=== PATIENT | male | born 1965 | race Caucasian/White ===

== ENCOUNTER 2016-08-17 12:44 | Observation (INO) | payer OTHER ==
[~2016-08-17] VITALS: Ht 185.4 cm; Wt 67.0 kg
[2016-08-17] MEDS: TIOTROPIUM INHALER/CAPSULE (SPIRIVA) INH SCH (08:00)
[~2016-08-17 12:44] MED LIST: ACET-654 PO; ADVI200T PO; AMBIEN PO; ASCO25TA PO; ASPI81TA21 PO; COMBIN INH; FERR325T3 PO; IRON28TA PO; IRON325T3 PO; IRONTAB3 PO; MUSCLE RELAXER PO; NICO14DI3 TD; NICO14PA TD; PERC5TAB PO; PERC7.5T12 PO; SPIRIVA INH; TYLE325T5 PO; ULTR50TA PO; ZOLP-187 PO; spiriva INH
[2016-08-17 13:52] LABS: MEAN CORPUSCULAR HEMOGLOBIN 16.7 pg (27.0-33.0); MEAN CORPUSCULAR HGB CONC 25.4 g/dl (32.0-36.5); MEAN CORPUSCULAR VOLUME 65.7 fl (80.0-96.0); WHITE BLOOD COUNT 3.4 K/mm3 (4.0-10.0)
[2016-08-17 14:00] LABS: INR 0.97
[2016-08-17 14:24] LABS: ALBUMIN/GLOBULIN RATIO 0.73 (1.00-1.93); ALKALINE PHOSPHATASE 44 U/L (45-117); ALT/SGPT 25 U/L (12-78); ANION GAP 10 MEQ/L (8-16); AST/SGOT 34 U/L (15-37); BILIRUBIN,DIRECT < 0.1 MG/DL (0.0-0.2); BILIRUBIN,TOTAL 0.3 MG/DL (0.2-1.0); BLOOD UREA NITROGEN 5 MG/DL (7-18); CALCIUM LEVEL 8.4 MG/DL (8.5-10.1); CARBON DIOXIDE LEVEL 20 MEQ/L (21-32); CHLORIDE LEVEL 108 MEQ/L (98-107); CREATININE FOR GFR 0.82 MG/DL (0.70-1.30); GLOMERULAR FILTRATION RATE > 60.0 (>56); GLUCOSE, FASTING 106 MG/DL (70-105); POTASSIUM SERUM 3.9 MEQ/L (3.5-5.1); SODIUM LEVEL 138 MEQ/L (136-145); TOTAL PROTEIN 7.1 GM/DL (6.4-8.2)
[2016-08-17 14:26] LABS: ANISOCYTOSIS 2+; BASOPHILS 3 % (0-4); EOSINOPHILS 4 % (0-5); HYPOCHROMASIA 3+; MICROCYTOSIS 3+; OVALOCYTES 1+
[2016-08-17 14:27] LABS: TEAR DROP CELLS 1+
--- NOTE | 2016-08-17 15:00 | HPEPDOC ---
General Date of Admission 07-18 Chief Complaint The patient is a 51-year-old male admitted with a reason for visit of Abnormal Lab Results. 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 Pt states that it clotted within minutes. He states that he has had nose bleeds in the past due to his hereditary condition and that when it gets to the point of him becoming dizzy, he knows to come to the hospital. He has been transfused blood in the past due to being anemic with his nose bleeds. Pt also states that for the past one month he has been becoming full very quickly after meals, also describes a 20 lb weight loss in two weeks. Home Medications Scheduled Ferrous Sulfate (Ferrous Sulfate) 325 Mg Tab, 325 MG PO DAILY, (Reported) Nicotine (Nicotine 14MG Patch) 1 Patch Tdsy, 1 PATCH TD DAILY, (Reported) Tiotropium [place] Monohydrate (Spiriva Handihaler) 18 Mcg Cap, 1 INHALATION INH DAILY, (Reported) Scheduled PRN Albuterol/Ipratropium (Combivent Respimat 20-100 Mcg/Act) 1 Aer Aer, 1 PUFF INH BID PRN for SHORTNESS OF BREATH, (Reported) Tramadol HCl (Tramadol HCl) 50 Mg Tab, 50 MG PO TID PRN for PAIN, (Reported) Allergies Coded Allergies: No Known Drug Allergy (Verified Allergy, 05/09/12) Past Medical History Medical History Osler Mitchell Rendu -HHT hx CVA 2013 w/residual left hand intermittent numbness COPD lung ca s/p lung resection mets to brain s/p gamma knife procedure in [place], [place] Family History Significant Family History: No pertinent family hx Social History * Smoker: Denies, current smoker (1/2 ppd since 16 years old) Alcohol: Denies Drugs: denies Review of Symptoms Constitutional: Reports: Fatigue, Denies: Chills, Fever Eyes: Denies: Vision change, Conjunctivae inflammation ENT: Denies: Head Aches, Ear Pain, Dysphagia Skin: Denies: Rash, Lesions Pulmonary: Denies: Dyspnea, Cough, Pleuritic Chest Pain Cardiovascular: Denies: Chest Pain, Palpitations, Orthopnea, Paroxysmal Noc. Dyspnea Gastrointestinal: Denies: Nausea, Vomiting, Abdominal Pain, Diarrhea, Constipation Hematologic: Reports: Bleeding Excessively, Denies: Petecchia, Purpura Neurological: Reports: Other Symptoms (dizzy), Denies: Weakness Psych: Reports: Mood Normal Physical Examination General Exam: Positive: Alert, Cooperative, No Acute Distress Eye Exam: Positive: Conjunctiva & lids normal, EOMI, Negative: Sclera icteric ENT Exam: Positive: Atraumatic, Mucous membr. moist/pink, Pharynx Normal, Tongue Midline Neck Exam: Positive: Supple Chest Exam: Positive: Clear to auscultation, Normal air movement, Negative: Rales, Rhonchi, Wheezing Heart Exam: Positive: Rate Normal, Normal S1, Normal S2, Negative: Gallops, Murmurs, Rubs Telemetry: Positive: No significant arrhythmia Abdomen Exam: Positive: Normal bowel sounds, Soft, Negative: Tenderness, Hepatospenomegaly Extremity Exam: Negative: Clubbing, Cyanosis, Edema Skin Exam: Positive: Nl turgor and temperature Other physical findings no lymphadenopathy appreciated. no abdominal pulsatile mass or bruit appreciated Vital Signs Vital Signs Date Time Temp Pulse Resp B/P (MAP) Pulse Ox O2 Delivery O2 Flow Rate FiO2 08/17/16 13:45 08/17/16 12:46 97.4 100 18 97 Room Air Laboratory Data Labs 24H Laboratory Tests 2 08/17/16 13:36: Neutrophils 64, Lymphocytes (Manual) 26, Monocytes (Manual) 3, Eosinophils ( Manual) 4, Basophils (Manual) 3, Platelet Estimate NORMAL, Hypochromasia 3+, Anisocytosis 2+, Microcytosis 3+, Tear Drop Cells 1+, Ovalocytes 1+, Prothrombin Time 13.0, Prothromb Time International Ratio 0.97, Activated Partial Thromboplast Time 28.6, Anion Gap 10, Glomerular Filtration Rate > 60.0 , Calcium Level 8.4L, Aspartate Amino Transf (AST/SGOT) 34, Alanine Aminotransferase (ALT/SGPT) 25, Alkaline Phosphatase 44L, Total Bilirubin 0.3, Direct Bilirubin < 0.1, Total Protein 7.1, Albumin 3.0L, Albumin/Globulin Ratio 0.73L CBC/BMP Laboratory Tests 08/17/16 13:36 Problems (1) Anemia Status: Acute Response to Treatment: Stable Problem Text: H/H 5.120 Pt will be transfused two units PRBC, consent obtained will check iron studies continue home iron will recheck H/H post transfusion (2) Hypotension Status: Acute Response to Treatment: Stable Problem Text: 104/59 will continue IV fluids hold any HTN medications (3) COPD (chronic obstructive pulmonary disease) Status: Chronic Response to Treatment: Stable Problem Text: continue home medications duonebs (4) HHT (hereditary hemorrhagic telangiectasia) Status: Chronic Response to Treatment: Stable Problem Text: bruit heard in RLL, will obtain abdominal u/s to evaluate for abdominal aneurysm, could not appreciate bruit or pulsatile mass on abdominal physical exam (5) Early satiety (6) Weight loss Status: Acute Response to Treatment: Stable Problem Text: describes 20 lb weight loss in 2 weeks due to history of lung cancer, will obtain Chest CT also due to early satiety will obtain barium swallow to evaluate for gastric etiology, pt did not have lymphadenopathy on PE (7) DVT prophylaxis Status: Acute Response to Treatment: Stable Problem Text: scd teds Plan / VTE VTE Prophylaxis Ordered?: Yes GME ATTESTATION GME ATTESTATION My preceptor for this patient encounter was physically present in the building during the encounter and was fully available. As needed, all aspects of the patient interview, examination, medical decision making process, and medical care plan development were reviewed and approved by the preceptor. Preceptor is aware and concurs with the plan as stated in the body of this note and will attest to such by his/her cosignature. MARK PAZ DO Aug 17, 2016 15:00 ALISIA DUENAS MD Aug 17, 2016 20:15
[2016-08-17] MEDS ORDERED: SPIR1CAP INH (15:03)
[2016-08-17] MEDS ORDERED: COMBAER6 INH (15:03)
[2016-08-17] MEDS ORDERED: FERR1TAB8 PO (15:03)
[2016-08-17] MEDS ORDERED: TRAM50TA2 PO (15:03)
[2016-08-17] MEDS ORDERED: NICO14DI20 TD (15:03)
[2016-08-17] MEDS ORDERED: traMADol 50 MG TAB PO PRN (15:45)
--- NOTE | 2016-08-17 15:57 | REP ---
CHEST, TWO VIEWS: Two views of the chest were performed and compared to prior study of 04/27/2013. There is no acute infiltrate. There is elevation of left hemidiaphragm with chronic blunting of left costophrenic angle. The heart is normal in size. Mediastinal silhouette is unchanged. Visualized osseous structures appear unremarkable. IMPRESSION: No acute infiltrate. Signed by Scar Enrique MD 08/17/2016 05:10 P
[2016-08-17] MEDS ORDERED: IPRATROPIUM 0.5MG/ALBUTEROL 2.5MG INH SOL UD 3ML (DUONEB)(J7620) NEB PRN (16:00)
[2016-08-17] MEDS ORDERED: NS 1,000 ML IV SCH (16:00)
[2016-08-17] MEDS ORDERED: ISOVUE-370 76% 100ML VIAL (Q9967) As Ordered ONE (16:30)
--- NOTE | 2016-08-17 17:31 | REP ---
ULTRASOUND ABDOMINAL AORTA: Real-time sonographic evaluation of the abdominal aorta performed. Real-time sonographic evaluation of the abdominal aorta is performed. The abdominal aorta is normal in caliber. Proximally at the level of the diaphragms, AP diameter is 2.2 cm, at the level of the renal arteries 2.1 cm, mid aspect 2.0 cm and just above the bifurcation 1.8 cm. Common iliac arteries are normal in caliber, right measuring 1.1 cm and left 0.9 cm. IMPRESSION: No sonographic evidence of abdominal aortic aneurysm. Signed by Scar Enrique MD 08/18/2016 04:22 P
[2016-08-17 18:20] VITALS: BP 115/69
[2016-08-17 19:28] LABS: FERRITIN 3 NG/ML (26-388); TOTAL IRON BINDING CAPACITY 362 UG/DL (250-450)
[2016-08-17 19:35] LABS: VITAMIN B12 LEVEL 319 PG/ML
[2016-08-17 19:36] LABS: FOLATE 9.6 NG/ML
--- NOTE | 2016-08-17 19:40 | REPUSA ---
CT angiogram of the chest Clinical statement: lung cancer, shortness of breath. Technique: Multiple axial CT images were obtained from the thoracic inlet through the upper abdomen a fter a bolus administration of nonionic intravenous contrast. Coronal and sagittal reconstructions we re also obtained. Comparison: 11/22/2012. Findings: The pulmonary arteries are well-opacified with contrast, with no intraluminal filling defec ts to suggest embolism. There is a vascular anomaly in the right lower lobe, with several dilated art erial structures noted. The thoracic aorta is unremarkable. Thyroid gland is within normal limits. Th ere is no thoracic lymphadenopathy. There are no pericardial or pleural effusions. Moderate bilateral emphysema is stable. There are no acute infiltrates or nodules. Limited imaging of the upper abdomen is unremarkable. There are no suspicious osseous lesions. Impression: 1. No evidence of pulmonary embolism. 2. No acute infiltrates or effusions. 3. 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 4. Stable moderate emphysema.
[2016-08-17 20:00] VITALS: BP 138/68
[2016-08-17] MEDS: NICOTINE 14 MG/24 HR TRANSDERMAL TD SCH (20:12)
[2016-08-17] MEDS: FERROUS SULFATE 325MG TAB PO SCH (20:12)
[2016-08-17 23:59] VITALS: BP 119/71
[2016-08-18] MEDS: ONDANSETRON 4MG/2ML VIAL (J2405) IV SCH ×6 (00:45→20:42)
[2016-08-18 04:00] VITALS: BP 112/66
[2016-08-18] MEDS ORDERED: ALBUTEROL SULFATE 2.5 MG/0.5 ML INH NEB SOLN NEB PRN (06:30)
[2016-08-18] MEDS: TIOTROPIUM INHALER/CAPSULE (SPIRIVA) INH SCH (07:13)
[2016-08-18] MEDS: IPRATROPIUM 0.5MG/ALBUTEROL 2.5MG INH SOL UD 3ML (DUONEB)(J7620) NEB SCH ×2 (07:13→20:54)
[2016-08-18 08:00] VITALS: BP 123/74
[2016-08-18 08:25] LABS: ADD MORPHOLOGY? YES; BASO % 0.8 % (0.0-1.0); EOS # 0.1 K/mm3 (0.0-0.50); EOS % 2.2 % (0.0-3.0); LARGE UNSTAINED CELL # 0.1 K/mm3 (0.0-0.4); LARGE UNSTAINED CELL % 1.8 % (0.0-4.0); LYMPH % 24.2 % (24.0-44.0); MEAN CORPUSCULAR HEMOGLOBIN 21.8 pg (27.0-33.0); MEAN CORPUSCULAR HGB CONC 29.5 g/dl (32.0-36.5); MEAN CORPUSCULAR VOLUME 74.2 fl (80.0-96.0); MONO # 0.3 K/mm3 (0.0-0.8); MONO % 6.6 % (0.0-5.0); NEUTROPHILS # 2.5 K/mm3 (1.8-7.7); NEUTROPHILS % 64.4 % (36.0-66.0); PLATELET COUNT, AUTOMATED 177 k/mm3 (150-450); RED CELL DISTRIBUTION WIDTH 22.8 % (11.5-14.5); WHITE BLOOD COUNT 3.9 K/mm3 (4.0-10.0)
[2016-08-18 08:55] LABS: HYPOCHROMASIA 2+; MICROCYTOSIS 2+
[2016-08-18] MEDS: FERROUS SULFATE 325MG TAB PO SCH (08:57)
[2016-08-18] MEDS: NICOTINE 14 MG/24 HR TRANSDERMAL TD SCH (08:57)
[2016-08-18 09:44] LABS: ANION GAP 8 MEQ/L (8-16); BLOOD UREA NITROGEN 6 MG/DL (7-18); CALCIUM LEVEL 7.9 MG/DL (8.5-10.1); CARBON DIOXIDE LEVEL 21 MEQ/L (21-32); CHLORIDE LEVEL 108 MEQ/L (98-107); CREATININE FOR GFR 0.69 MG/DL (0.70-1.30); GLOMERULAR FILTRATION RATE > 60.0 (>56); GLUCOSE, FASTING 81 MG/DL (70-105); POTASSIUM SERUM 3.9 MEQ/L (3.5-5.1); SODIUM LEVEL 137 MEQ/L (136-145)
--- NOTE | 2016-08-18 10:00 | IPNPDOC ---
Subjective Date Seen The patient was seen on 08/18/16. Subjective Chief Complaint/HPI The patient is a 51-year-old male admitted with a reason for visit of Anemia, Osler Hemorrhagic Telangiectasia Syndrome. General: Denies: Chills Constitutional: Denies: Malaise Eyes: Denies: Vision change, Conjunctivae inflammation, Eyelid inflammation Skin: Denies: Rash, Lesions, Jaundice Pulmonary: Denies: Dyspnea, Cough Cardiovascular: Denies: Chest Pain, Palpitations, Orthopnea Gastrointestinal: Denies: Nausea, Vomiting, Abdominal Pain Musculoskeletal: Denies: Neck Pain Neurological: Denies: Weakness Objective Physical Examination General Exam: Positive: Alert, Cooperative, No Acute Distress Eye Exam: Positive: Conjunctiva & lids normal, EOMI, Negative: Sclera icteric ENT Exam: Positive: Atraumatic, Mucous membr. moist/pink, Pharynx Normal, Tongue Midline Neck Exam: Positive: Supple Chest Exam: Positive: Clear to auscultation, Normal air movement, Negative: Rales, Rhonchi, Wheezing Heart Exam: Positive: Rate Normal, Normal S1, Normal S2, Negative: Gallops, Murmurs, Rubs Telemetry: Positive: No significant arrhythmia Abdomen Exam: Positive: Normal bowel sounds, Soft, Negative: Tenderness, Hepatospenomegaly Extremity Exam: Negative: Clubbing, Cyanosis, Edema Skin Exam: Positive: Nl turgor and temperature Assessment /Plan Problems (1) Anemia Status: Acute Response to Treatment: Stable Problem Text: H/H 8.5/28.9 this morning s/p 2 pRBC transfusions iron studies show iron 11, TIBC 362, transferrin 3.0 and ferritin 3, suspect iron def. anemia continue home iron will continue to monitor h/h (2) Hypotension Status: Acute Response to Treatment: Stable Problem Text: stable, improved, 123/74 have d/c IV fluids continue to monitor (3) COPD (chronic obstructive pulmonary disease) Status: Chronic Response to Treatment: Stable Problem Text: continue home medications duonebs (4) HHT (hereditary hemorrhagic telangiectasia) Status: Chronic Response to Treatment: Stable Problem Text: bruit heard in RLL negative abdominal aortic u/s for aneurysm Chest CT shows AVM unchanged from prior study continue to monitor pt is not SOB, saturation 96% on room air (5) Early satiety Status: Acute Response to Treatment: Stable Problem Text: described 20 lb weight loss in 2 weeks, will obtain barium swallow to evaluate for mass/lesions, denies feeling of food getting stuck in throat or chest (6) Weight loss Status: Acute Response to Treatment: Stable Problem Text: describes 20 lb weight loss in 2 weeks due to history of lung cancer, chest CT was obtained, negative for acute disease also due to early satiety will obtain barium swallow to evaluate for gastric etiology, pt did not have lymphadenopathy on PE (7) DVT prophylaxis Status: Acute Response to Treatment: Stable Problem Text: scd teds Plan/VTE VTE Prophylaxis Ordered?: Yes VS, I&O, 24H, Fishbone Vital Signs/I&O Vital Signs Date Time Temp Pulse Resp B/P (MAP) Pulse Ox O2 Delivery O2 Flow Rate FiO2 08/18/16 08:00 99.5 69 20 123/74 (90) 96 Room Air I&O- Last 24 Hours up to 6 AM 08/18/16 05:59 Intake Total 1320 ml Output Total 1850 ml Balance -530 ml Laboratory Data 24H LABS Laboratory Tests 2 08/17/16 13:36: Neutrophils 64, Lymphocytes (Manual) 26, Monocytes (Manual) 3, Eosinophils ( Manual) 4, Basophils (Manual) 3, Platelet Estimate NORMAL, Hypochromasia 3+, Anisocytosis 2+, Microcytosis 3+, Tear Drop Cells 1+, Ovalocytes 1+, Prothrombin Time 13.0, Prothromb Time International Ratio 0.97, Activated Partial Thromboplast Time 28.6, Anion Gap 10, Glomerular Filtration Rate > 60.0 , Calcium Level 8.4L, Iron Level 11L, Total Iron Binding Capacity 362, Transferrin % Saturation 3.0L, Ferritin 3L, Aspartate Amino Transf (AST/SGOT) 34 , Alanine Aminotransferase (ALT/SGPT) 25, Alkaline Phosphatase 44L, Total Bilirubin 0.3, Direct Bilirubin < 0.1, Total Creatine Kinase 47, Creatine Kinase MB 1.1, Creatine Kinase MB Relative Index 2.34, Troponin I < 0.02, Total Protein 7.1, Albumin 3.0L, Albumin/Globulin Ratio 0.73L, Vitamin B12 Level 319, Folate 9.6 08/18/16 07:49: Platelet Estimate NORMAL, Hypochromasia 2+, Microcytosis 2+, Anion Gap 8, Glomerular Filtration Rate > 60.0, Calcium Level 7.9L, White Blood Count 3.9L, Red Blood Count 3.90L, Hemoglobin 8.5L, Hematocrit 28.9L, Mean Corpuscular Volume 74.2#L, Mean Corpuscular Hemoglobin 21.8L, Mean Corpuscular Hemoglobin Concent 29.5L, Red Cell Distribution Width 22.8H, Platelet Count 177, Neutrophils (%) (Auto) 64.4, Lymphocytes (%) (Auto) 24.2, Monocytes (%) (Auto) 6.6H, Eosinophils (%) (Auto) 2.2, Basophils (%) (Auto) 0.8, Neutrophils # (Auto ) 2.5, Lymphocytes # (Auto) 1.0L, Monocytes # (Auto) 0.3, Eosinophils # (Auto) 0.1, Basophils # (Auto) 0.0, Large Unclassified Cells % 1.8, Large Unclassified Cells # 0.1, Macrocytosis , Blood Urea Nitrogen 6L, Creatinine 0.69L, Sodium Level 137, Potassium Level 3.9, Chloride Level 108H, Carbon Dioxide Level 21 CBC/BMP Laboratory Tests 08/17/16 13:36 08/18/16 00:11 08/18/16 07:49 Red Blood Count 3.90 L, Mean Corpuscular Volume 74.2 #L, Mean Corpuscular Hemoglobin 21.8 L, Mean Corpuscular Hemoglobin Concent 29.5 L, Red Cell Distribution Width 22.8 H, Neutrophils (%) (Auto) 64.4, Lymphocytes (%) (Auto) 24.2, Monocytes (%) (Auto) 6.6 H, Eosinophils (%) (Auto) 2.2, Basophils (%) ( Auto) 0.8, Neutrophils # (Auto) 2.5, Lymphocytes # (Auto) 1.0 L, Monocytes # ( Auto) 0.3, Eosinophils # (Auto) 0.1, Basophils # (Auto) 0.0, Calcium Level 7.9 L Microbiology Microbiology 08/17/16 Stool Occult Blood (FANTA) - Final, Complete GME ATTESTATION GME ATTESTATION My preceptor for this patient encounter was physically present in the building during the encounter and was fully available. As needed, all aspects of the patient interview, examination, medical decision making process, and medical care plan development were reviewed and approved by the preceptor. Preceptor is aware and concurs with the plan as stated in the body of this note and will attest to such by his/her cosignature. MARK PAZ DO Aug 18, 2016 10:00
[2016-08-18 12:00] VITALS: BP 106/66
[2016-08-18 16:30] VITALS: BP 115/73
--- NOTE | 2016-08-18 18:21 | ECGEPIP ---
Stationary ECG Study [facility] - ED Test Date: 2016-08-17 Pat Name: MIRIAN FELICIANO Department: Room: - Gender: M Customer Relations Representative: suzanne : 1965 Requested By: MICHAEL RAMEY Order Number: [id number] Reading MD: Madeline Beavers Measurements Intervals [place] Rate: 78 P: 72 LA: 167 QRS: 71 QRSD: 93 T: 32 QT: 373 QTc: 427 Interpretive Statements SINUS RHYTHM DELAYED R PROGRESSION LOW VOLTAGE LIMB NSTTW ABNORMALITY Electronically Signed On 08-18-2016 18:20:48 EDT by Madeline Beavers
[2016-08-18 20:00] VITALS: BP 103/63
[2016-08-18 23:59] VITALS: BP 113/69
[2016-08-19] MEDS: ONDANSETRON 4MG/2ML VIAL (J2405) IV SCH ×4 (01:02→13:09)
[2016-08-19 04:00] VITALS: BP 118/80
[2016-08-19 05:52] LABS: ADD MORPHOLOGY? YES; BASO # 0.1 K/mm3 (0.0-0.2); BASO % 1.2 % (0.0-1.0); EOS # 0.2 K/mm3 (0.0-0.50); EOS % 3.2 % (0.0-3.0); LARGE UNSTAINED CELL # 0.1 K/mm3 (0.0-0.4); LARGE UNSTAINED CELL % 1.6 % (0.0-4.0); LYMPH # 1.4 K/mm3 (1.5-4.5); LYMPH % 26.1 % (24.0-44.0); MEAN CORPUSCULAR HEMOGLOBIN 22.1 pg (27.0-33.0); MEAN CORPUSCULAR HGB CONC 29.9 g/dl (32.0-36.5); MEAN CORPUSCULAR VOLUME 73.9 fl (80.0-96.0); MONO # 0.3 K/mm3 (0.0-0.8); MONO % 6.2 % (0.0-5.0); NEUTROPHILS # 3.2 K/mm3 (1.8-7.7); NEUTROPHILS % 61.8 % (36.0-66.0); PLATELET COUNT, AUTOMATED 178 k/mm3 (150-450); RED CELL DISTRIBUTION WIDTH 23.6 % (11.5-14.5); WHITE BLOOD COUNT 5.1 K/mm3 (4.0-10.0)
[2016-08-19 06:09] LABS: ANION GAP 6 MEQ/L (8-16); BLOOD UREA NITROGEN 6 MG/DL (7-18); CARBON DIOXIDE LEVEL 22 MEQ/L (21-32); CHLORIDE LEVEL 108 MEQ/L (98-107); CREATININE FOR GFR 0.71 MG/DL (0.70-1.30); GLOMERULAR FILTRATION RATE > 60.0 (>56); GLUCOSE, FASTING 86 MG/DL (70-105); POTASSIUM SERUM 3.8 MEQ/L (3.5-5.1); SODIUM LEVEL 136 MEQ/L (136-145)
[2016-08-19 06:47] LABS: HYPOCHROMASIA 2+; MICROCYTOSIS 2+
[2016-08-19 06:49] LABS: ANISOCYTOSIS 2+
[2016-08-19] MEDS: IPRATROPIUM 0.5MG/ALBUTEROL 2.5MG INH SOL UD 3ML (DUONEB)(J7620) NEB SCH (07:00)
[2016-08-19] MEDS: TIOTROPIUM INHALER/CAPSULE (SPIRIVA) INH SCH (07:00)
[2016-08-19 07:45] VITALS: BP 112/71
--- NOTE | 2016-08-19 08:38 | DS.PDOC ---
Discharge Summary General Date of Admission Aug 17, 2016 at 16:12 Date of Discharge 08-19-16 Discharge Summary PROCEDURES PERFORMED DURING STAY: None ADMITTING DIAGNOSES: 1. Acute blood loss anemia 2. Hypotension 3. COPD 4. Early satiety and weight loss DISCHARGE DIAGNOSES: 1. Acute blood loss anemia 2/2 epistaxis due to Hereditary hemorrhagic telangiectasia 2. COPD 3. Hypotension 4. 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 Early satiety/wt. loss will need to be worked up for malignancy 6. Osler Mitchell Rendu Syndrome 7. 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 History of lung cancer with Metastasis to Brain treated in 2012 with Lung resection and gamma knife irradiation of the brain 9. History of CVA 10. GERD COMPLICATIONS/CHIEF COMPLAINT: Anemia, Osler Hemorrhagic Telangiectasia Syndrome. 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 HOSPITAL COURSE: During the course of the hospital stay the pt received a total of four pRBC transfusions. On day of d/c his H/H was 8.8/29.4 respectively. He appeared well and stated he was ready to go home, did not have any further nose bleeds during this hospital stay. DISCHARGE MEDICATIONS: Please see below. ALLERGIES: Please see below. PHYSICAL EXAMINATION ON DISCHARGE: VITAL SIGNS: Please see below. GENERAL: Well appearing, pleasant, conversant. HEENT: EOMI, PERRLA, nares patent b/l, neck supple, trachea midline CARDIOVASCULAR EXAMINATION: NSR, no murmurs, rubs or gallops appreciated. RESPIRATORY EXAMINATION: RLL bruit from stable AVM, otherwise CTA b/l although diminished throughout, no wheezing, rhonchi or rales appreciated ABDOMINAL EXAMINATION: soft, non-distended, nabsx4, no rebound ridgity or guarding, non-tender EXTREMITIES: no edema, swelling or cyanosis appreciated SKIN: intact NEUROLOGICAL EXAMINATION: no focal deficits appreciated PSYCHIATRIC EXAMINATION: normal affect and mood LABORATORY DATA: Please see below. IMAGING: CXR 08-17-16 IMPRESSION: No acute infiltrate. Aortic u/s 08-17-16 IMPRESSION: No sonographic evidence of abdominal aortic aneurysm. Barium swallow 08-19-16 There is gastroesophageal reflux demonstrated to the level of the braxton. There are thickened folds within the stomach and duodenum. This may represent gastritis and duodenitis however this may also be related to the reported history of vascular telangiectasia.The patient has a history of duplication of the IVC. There are two IVC filters in place. PROGNOSIS: favorable ACTIVITY: As tolerated DIET: Regular, as tolerated DISCHARGE PLAN: home DISPOSITION: stable DISCHARGE INSTRUCTIONS: 1. Follow with PCP within one week of d/c ITEMS TO FOLLOWUP ON ON OUTPATIENT: 1. Follow with PCP within one week of d/c DISCHARGE CONDITION: Stable TIME SPENT ON DISCHARGE: Greater than 25 minutes. Vital Signs/I&Os Vital Signs Date Time Temp Pulse Resp B/P (MAP) Pulse Ox O2 Delivery O2 Flow Rate FiO2 08/19/16 07:45 99.5 74 22 112/71 (85) 96 Room Air I&O- Last 24 Hours up to 6 AM 08/19/16 05:59 Intake Total 1965 ml Output Total 1225 ml Balance 740 ml Laboratory Data Labs 24H Laboratory Tests 2 08/19/16 05:40: White Blood Count 5.1, Red Blood Count 3.97L, Hemoglobin 8.8L, Hematocrit 29.4L , Mean Corpuscular Volume 73.9L, Mean Corpuscular Hemoglobin 22.1L, Mean Corpuscular Hemoglobin Concent 29.9L, Red Cell Distribution Width 23.6H, Platelet Count 178, Neutrophils (%) (Auto) 61.8, Lymphocytes (%) (Auto) 26.1, Monocytes (%) (Auto) 6.2H, Eosinophils (%) (Auto) 3.2H, Basophils (%) (Auto) 1.2H, Neutrophils # (Auto) 3.2, Lymphocytes # (Auto) 1.4L, Monocytes # (Auto) 0.3, Eosinophils # (Auto) 0.2, Basophils # (Auto) 0.1, Large Unclassified Cells % 1.6, Large Unclassified Cells # 0.1, Platelet Estimate NORMAL, Hypochromasia 2 +, Anisocytosis 2+, Microcytosis 2+, Anion Gap 6L, Glomerular Filtration Rate > 60.0, Blood Urea Nitrogen 6L, Creatinine 0.71, Sodium Level 136, Potassium Level 3.8, Chloride Level 108H, Carbon Dioxide Level 22, Calcium Level 8.0L CBC/BMP Laboratory Tests 08/19/16 05:40 Red Blood Count 3.97 L, Mean Corpuscular Volume 73.9 L, Mean Corpuscular Hemoglobin 22.1 L, Mean Corpuscular Hemoglobin Concent 29.9 L, Red Cell Distribution Width 23.6 H, Neutrophils (%) (Auto) 61.8, Lymphocytes (%) (Auto) 26.1, Monocytes (%) (Auto) 6.2 H, Eosinophils (%) (Auto) 3.2 H, Basophils (%) ( Auto) 1.2 H, Neutrophils # (Auto) 3.2, Lymphocytes # (Auto) 1.4 L, Monocytes # ( Auto) 0.3, Eosinophils # (Auto) 0.2, Basophils # (Auto) 0.1, Calcium Level 8.0 L Microbiology Microbiology 08/17/16 Stool Occult Blood (FANTA) - Final, Complete Discharge Medications Scheduled Ferrous Sulfate (Ferrous Sulfate) 325 Mg Tab, 325 MG PO DAILY, (Reported) Nicotine (Nicotine 14MG Patch) 1 Patch Tdsy, 1 PATCH TD DAILY, (Reported) Tiotropium [place] Monohydrate (Spiriva Handihaler) 18 Mcg Cap, 1 INHALATION INH DAILY, (Reported) Scheduled PRN Albuterol/Ipratropium (Combivent Respimat 20-100 Mcg/Act) 1 Aer Aer, 1 PUFF INH BID PRN for SHORTNESS OF BREATH, (Reported) Tramadol HCl (Tramadol HCl) 50 Mg Tab, 50 MG PO TID PRN for PAIN, (Reported) Allergies Coded Allergies: No Known Drug Allergy (Verified Allergy, 05/09/12) GME ATTESTATION GME ATTESTATION My preceptor for this patient encounter was physically present in the building during the encounter and was fully available. As needed, all aspects of the patient interview, examination, medical decision making process, and medical care plan development were reviewed and approved by the preceptor. Preceptor is aware and concurs with the plan as stated in the body of this note and will attest to such by his/her cosignature. MARK PAZ DO Aug 19, 2016 08:38 JAQUELINE LEE MD Sep 08, 2016 19:44
[2016-08-19] MEDS: NICOTINE 14 MG/24 HR TRANSDERMAL TD SCH (09:00)
[2016-08-19] MEDS: FERROUS SULFATE 325MG TAB PO SCH (09:00)
[2016-08-19] MEDS ORDERED: E-Z-GAS II EFFERVESCENT PACKET (SODIUM BICARB./CITRIC ACID/SIMETHICONE) As Ordered ONE (10:06)
[2016-08-19] MEDS ORDERED: E-Z-HD 98% w/w 340GM SUSP BTL As Ordered ONE (10:06)
[2016-08-19] MEDS ORDERED: E-Z-PAQUE 96% w/w SUSP 176GM BTL As Ordered ONE (10:06)
--- NOTE | 2016-08-19 17:25 | REP ---
UPPER GI AIR CONTRAST AND SMALL BOWEL FOLLOW-THROUGH: The procedure was performed under the direct supervision of Dr. Enrique. The images were reviewed with Dr. Enrique. The dater assembler film shows no organomegaly or pathological masses. The intestinal gas pattern is nonspecific. The patient has a history of duplication of the IVC. There are two IVC filters in place. Liquid barium and gas producing granules were given in the erect position as well as liquid barium in the prone oblique position in order to perform a double contrast upper GI examination. Additionally liquid barium was given at the end of the examination in order to perform a small bowel follow-through. The oral and pharyngeal stages of deglutition are unremarkable. Esophageal transport is prompt and efficient and there is no esophagitis, stricture, mucosal ring, or hiatal hernia. There is gastroesophageal reflux demonstrated to the level of the braxton. Within the stomach there are thickened folds. There is no alonzo ulcer identified. This may represent gastritis however this may also be related to vascular telangiectasia. Within the duodenum there are thickened folds. Again this may represent duodenitis and/or vascular telangiectasia . There is no alonzo ulcer identified. The barium column was followed through the small bowel to the level of the terminal ileum. Small bowel transit time was approximately 110 minutes. During fluoroscopy gentle palpation shows all loops are freely movable and pliable. There are no fixed or angulated loops. The small bowel mucosal pattern is normal in course and caliber. There is no transition to suggest a partial small bowel obstruction. Spot filming of terminal ileum shows it to be unremarkable. IMPRESSION: There are thickened folds within the stomach and duodenum. This may represent gastritis and duodenitis however this may also be related to the reported history of vascular telangiectasia. 3 minutes and 42 seconds of fluoroscopy time was utilized for this procedure. Reviewed by BENJY Cardenas 08/20/2016 03:20 PEdited and Signed by Scar Enrique MD 08/20/2016 03:54 P
== END 2016-08-19 14:58 | disposition home or self-care (01) ==
LOC: M ED 12:44 → M ED INP 16:12 → M PCU 18:21
PROVIDERS: ADMIT Internal Medicine; ATTEND Internal Medicine Nephrology
DX: D62 Acute posthemorrhagic anemia (principal); R04.0 Epistaxis; I95.9 Hypotension, unspecified; J44.9 Chronic obstructive pulmonary disease, unspecified; R68.81 Early satiety; R63.4 Abnormal weight loss; I78.0 Hereditary hemorrhagic telangiectasia; Z85.3 Personal history of malignant neoplasm of breast; Z86.73 Personal history of transient ischemic attack (TIA), and cerebral infarction without residual deficits; Z85.841 Personal history of malignant neoplasm of brain; F17.210 Nicotine dependence, cigarettes, uncomplicated; Z79.899 Other long term (current) drug therapy
CPT/HCPCS: 36415; 36430; 71020; 71260; 74245; 76775; 80048; 80076; 82270; 82550; 82553; 82607; 82728; 82746; 83550; 85007; 85014; 85018; 85025; 85027; 85610; 85730; 86850; 86900; 86901; 86920; 93000; 94640; 96374; 96376; 99285; P9016

== ENCOUNTER 2016-09-23 11:36 | Observation (INO) | payer OTHER ==
[~2016-09-23] VITALS: Ht 185.4 cm; Wt 72.0 kg
[~2016-09-23 11:36] MED LIST changes: +COMBAER6 INH; +FERR1TAB8 PO; +NICO14DI20 TD; +SPIR1CAP INH; +TRAM50TA2 PO
[2016-09-23 13:53] LABS: ADD MANUAL DIFFER YES; MEAN CORPUSCULAR HEMOGLOBIN 20.7 pg (27.0-33.0); MEAN CORPUSCULAR HGB CONC 27.8 g/dl (32.0-36.5); MEAN CORPUSCULAR VOLUME 74.5 fl (80.0-96.0); PLATELET COUNT, AUTOMATED 236 k/mm3 (150-450); RED CELL DISTRIBUTION WIDTH 21.9 % (11.5-14.5); WHITE BLOOD COUNT 2.1 K/mm3 (4.0-10.0)
[2016-09-23 13:54] LABS: DIFF SLIDE NUMBER 240
[2016-09-23 13:58] LABS: INR 0.96
[2016-09-23 14:16] LABS: ALBUMIN 2.8 GM/DL (3.2-5.2); ALBUMIN/GLOBULIN RATIO 0.78 (1.00-1.93); ALKALINE PHOSPHATASE 41 U/L (45-117); ALT/SGPT 30 U/L (12-78); ANION GAP 12 MEQ/L (8-16); AST/SGOT 45 U/L (15-37); BILIRUBIN,DIRECT 0.1 MG/DL (0.0-0.2); BILIRUBIN,TOTAL 0.2 MG/DL (0.2-1.0); BLOOD UREA NITROGEN 4 MG/DL (7-18); CALCIUM LEVEL 7.9 MG/DL (8.5-10.1); CARBON DIOXIDE LEVEL 21 MEQ/L (21-32); CHLORIDE LEVEL 107 MEQ/L (98-107); CREATININE FOR GFR 0.73 MG/DL (0.70-1.30); GLOMERULAR FILTRATION RATE > 60.0 (>56); GLUCOSE, FASTING 106 MG/DL (70-105); POTASSIUM SERUM 3.6 MEQ/L (3.5-5.1); SODIUM LEVEL 140 MEQ/L (136-145); TOTAL PROTEIN 6.4 GM/DL (6.4-8.2)
[2016-09-23 14:23] LABS: BASOPHILS 2 % (0-4); EOSINOPHILS 4 % (0-5)
[2016-09-23 14:24] LABS: HYPOCHROMASIA 2+; MICROCYTOSIS 2+
[2016-09-23] MEDS ORDERED: INCR1INH INH (14:26)
[2016-09-23] MEDS ORDERED: NS 1,000 ML IV ONE (14:30)
--- NOTE | 2016-09-23 14:37 | REP ---
CHEST, TWO VIEWS: COMPARISON: 08/17/2016 Two views of the chest are performed and again demonstrate bibasilar fibrotic change with chronic blunting of the left costophrenic angle and pleural thickening at that location. There is no acute infiltrate. The heart is normal in size. The mediastinal silhouette is unchanged. The visualized osseous structures appear intact. IMPRESSION: Stable chronic findings without evidence of acute pulmonary disease. Signed by Scar Enrique MD 09/23/2016 05:13 P
--- NOTE | 2016-09-23 14:41 | HPEPDOC ---
Medical History and Physical Date of Admission 09/23/16 History and Physical ATTENDING: Dr. Reynolds PCP: Nina Sharma NP CC: Sent by PCP related to labs for blood transfusion. 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 He has been transfused blood in the past due to being anemic with his nose bleeds. Pt states he had labs as per PCP and was sent to ED today after results were reviewed. Hgb 6.6. Pt has severe epistaxis related to HHT. Pt states he has felt weak and tired recently. Denies any fevers, chills, weakness, fatigue, ARNDT, CP, SOB, cough, palpitations, abdominal pain, N/V/D or changes in bowel or bladder habits. Upon presentation to the hospital the patient was found to have anemia, thus the hospitalist team was consulted. PMHx/PSHx: Osler Mitchell Rendu -HHT hx CVA 2013 w/residual left hand intermittent numbness COPD lung ca s/p lung resection mets to brain s/p gamma knife procedure in [place], [place] H/O DVT/mark filter SOCHX: Resides in: [facility] Marital Status: single Kids: 4 Employment: unemployed Tobacco use: 1/2ppd ETOH: denies Illicit Drugs: Denies Recent travel: denies Advanced directives: none FAMHX: Mother: Alive, well Father: , complications of Osler Mitchell Gregoria/HHT Siblings: Alive, 1 sister with Osler Mitchell Gregoria/HHT Children: Alive, son with nosebleeds. Unexpected deaths due to medical reasons: None. ROS: As noted in HPI, otherwise 11pt ROS of systems reviewed and unremarkable. PE: GEN: 51yoM, appears stated age. Well-nourished, well developed. No acute distress. Alert and oriented x 3. Pleasant, interactive. HEENT: Normocephalic, atraumatic. Pupils are equal, round, and reactive to light. Extraocular movements are intact. No nystagmus appreciated. Sclera are nonicteric. Conjunctiva without injection. Nose midline. Nasal turbinates without bogginess. EACs both patent BL. TMs both visualized and orellana with good cone of light, no bulging or erythema. No facial asymmetry. Moist mucous membranes. Dentition poor. Pharynx pink and moist, no cobblestoning. Neck supple , trachea midline. No lymphadenopathy or thyromegaly appreciated. CHEST: Regular rate and rhythm, +S1, +S2 LUNGS: Clear to auscultation bilaterally. No wheezes, rales, or rhonchi. Breathing appears symmetric and easy. Patient is speaking in full sentences. No accessory muscle use. ABD: Round, soft, non-tender, non-distended. +Bowel sounds throughout. No rebound or guarding. No costovertebral angle tenderness. EXT: Pulses 2+ bilaterally dorsalis pedis and radial. No lower extremity edema appreciated. SKIN: [place], dry, warm. Capillary refill <2sec. No rashes. NEURO: Alert and oriented x 3. Cranial nerves III-XII are intact. No focal deficits appreciated. CXR: pending. EKG: SR occas PVC, 75 bpm. 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 He has been transfused blood in the past due to being anemic with his nose bleeds. Pt states he had labs as per PCP and was sent to ED today after results were reviewed. Hgb 6.6, in ED 6.2. Pt has h/o severe epistaxis related to HHT. Pt states he has felt weak and tired recently. 1. The patient will be admitted to M/S for obs to Dr. Reynolds's service. Pt is discussed with Dr Bell. 2. Anemia. Consent on chart. Transfuse 2 u PRBC. CBC Q6h. IVF given in ED, Recheck LA. 3. Osler Mitchell Gregoria/HHT. H/O severe epistaxis. 4. COPD. Cont prn nebs. DVT prophylaxis. SCD/TEDS. The patient is a Full code. Vital Signs Vital Signs Date Time Temp Pulse Resp B/P (MAP) Pulse Ox O2 Delivery O2 Flow Rate FiO2 09/23/16 13:02 09/23/16 11:36 98.2 100 18 98 Room Air Laboratory Data Labs 24H Laboratory Tests 2 09/23/16 13:36: Neutrophils 62, Lymphocytes (Manual) 29, Monocytes (Manual) 3, Eosinophils ( Manual) 4, Basophils (Manual) 2, Platelet Estimate NORMAL, Hypochromasia 2+, Microcytosis 2+, Prothrombin Time 12.9, Prothromb Time International Ratio 0.96 , Activated Partial Thromboplast Time 28.3, Anion Gap 12, Glomerular Filtration Rate > 60.0, Lactic Acid Level 5.9*H, Calcium Level 7.9L, Aspartate Amino Transf (AST/SGOT) 45H, Alanine Aminotransferase (ALT/SGPT) 30, Alkaline Phosphatase 41L, Total Bilirubin 0.2, Direct Bilirubin 0.1, Total Creatine Kinase 34L, Creatine Kinase MB 1.3, Creatine Kinase MB Relative Index 3.82, Troponin I < 0.02, Total Protein 6.4, Albumin 2.8L, Albumin/Globulin Ratio 0.78L , Lipase 183 CBC/BMP Laboratory Tests 09/23/16 13:36 Red Blood Count 2.97 L, Mean Corpuscular Volume 74.5 L, Mean Corpuscular Hemoglobin 20.7 L, Mean Corpuscular Hemoglobin Concent 27.8 L, Red Cell Distribution Width 21.9 H Home Medications Scheduled (Incruse Ellipta) 62.5 Mcg/Inh Inh, 1 PUFF INH DAILY Ferrous Sulfate (Ferrous Sulfate) 325 Mg Tab, 325 MG PO DAILY Scheduled PRN Albuterol/Ipratropium (Combivent Respimat 20-100 Mcg/Act) 1 Aer Aer, 1 PUFF INH BID PRN for SHORTNESS OF BREATH Tramadol HCl (Tramadol HCl) 50 Mg Tab, 50 MG PO TID PRN for PAIN Allergies Coded Allergies: No Known Drug Allergy (Verified Allergy, 05/09/12) Deanne Saul Sep 23, 2016 14:41
[2016-09-23] MEDS ORDERED: ACETAMINOPHEN TAB 650MG DOSE (2X325MG) PO PRN (15:00)
[2016-09-23] MEDS ORDERED: IPRATROPIUM 0.5MG/ALBUTEROL 2.5MG INH SOL UD 3ML (DUONEB)(J7620) NEB PRN (15:00)
[2016-09-23] MEDS ORDERED: traMADol 50 MG TAB PO PRN (15:00)
[2016-09-23 15:30] LABS: FERRITIN 5 NG/ML (26-388); PERCENT SATURATION 4.1 % (19.7-50.0); TOTAL IRON BINDING CAPACITY 319 UG/DL (250-450)
[2016-09-23 15:58] LABS: VITAMIN B12 LEVEL 305 PG/ML (247-911)
[2016-09-23 15:59] LABS: FOLATE 6.4 NG/ML (>5.4)
[2016-09-23 16:05] VITALS: BP 120/62
[2016-09-23] MEDS: FERROUS SULFATE 325MG TAB PO SCH (16:26)
[2016-09-23] MEDS: IPRATROPIUM 0.5MG/ALBUTEROL 2.5MG INH SOL UD 3ML (DUONEB)(J7620) NEB SCH ×3 (19:29→20:00)
[2016-09-23 22:00] VITALS: BP 121/72
[2016-09-23 22:04] LABS: MEAN CORPUSCULAR HEMOGLOBIN 22.4 pg (27.0-33.0); MEAN CORPUSCULAR HGB CONC 29.4 g/dl (32.0-36.5); MEAN CORPUSCULAR VOLUME 76.3 fl (80.0-96.0); RED CELL DISTRIBUTION WIDTH 20.8 % (11.5-14.5); WHITE BLOOD COUNT 2.9 K/mm3 (4.0-10.0)
[2016-09-24 06:00] VITALS: BP 118/68
[2016-09-24 06:30] VITALS: BP 119/66
[2016-09-24 06:45] LABS: ALBUMIN 2.7 GM/DL (3.2-5.2); ALBUMIN/GLOBULIN RATIO 0.77 (1.00-1.93); ALKALINE PHOSPHATASE 39 U/L (45-117); ALT/SGPT 29 U/L (12-78); ANION GAP 9 MEQ/L (8-16); AST/SGOT 42 U/L (15-37); BILIRUBIN,TOTAL 0.6 MG/DL (0.2-1.0); BLOOD UREA NITROGEN 4 MG/DL (7-18); CALCIUM LEVEL 7.5 MG/DL (8.5-10.1); CARBON DIOXIDE LEVEL 24 MEQ/L (21-32); CHLORIDE LEVEL 106 MEQ/L (98-107); CREATININE FOR GFR 0.69 MG/DL (0.70-1.30); GLOMERULAR FILTRATION RATE > 60.0 (>56); GLUCOSE, FASTING 82 MG/DL (70-105); POTASSIUM SERUM 3.9 MEQ/L (3.5-5.1); SODIUM LEVEL 139 MEQ/L (136-145); TOTAL PROTEIN 6.2 GM/DL (6.4-8.2)
[2016-09-24] MEDS: IPRATROPIUM 0.5MG/ALBUTEROL 2.5MG INH SOL UD 3ML (DUONEB)(J7620) NEB SCH ×2 (07:04→14:00)
[2016-09-24] MEDS: FERROUS SULFATE 325MG TAB PO SCH (09:49)
[2016-09-24 10:38] LABS: MEAN CORPUSCULAR HEMOGLOBIN 24.5 pg (27.0-33.0); MEAN CORPUSCULAR HGB CONC 31.4 g/dl (32.0-36.5); MEAN CORPUSCULAR VOLUME 77.9 fl (80.0-96.0); RED CELL DISTRIBUTION WIDTH 19.6 % (11.5-14.5); WHITE BLOOD COUNT 4.3 K/mm3 (4.0-10.0)
[2016-09-24] MEDS ORDERED: TYLE325T5 PO (10:54)
--- NOTE | 2016-09-25 08:29 | ECGEPIP ---
Stationary ECG Study [facility] - ED Test Date: 2016-09-23 Pat Name: MIRIAN FELICIANO Department: Room: - Gender: M Manipulative Therapy Specialist: JStephane : 1965 Requested By: Rebecca Mondragon Order Number: [id number] Reading MD: Madeline Beavers Measurements Intervals [place] Rate: 75 P: 76 AR: 168 QRS: 69 QRSD: 92 T: 32 QT: 383 QTc: 428 Interpretive Statements SINUS RHYTHM WITH OCCASIONAL VENTRICULAR PREMATURE COMPLEXES DELAYED R PROGRESSION NSTTW ABNORMALITY SIMILAR 08/17/16 Electronically Signed On 09-25-2016 8:28:49 EDT by Madeline Beavers
== END 2016-09-24 15:02 | disposition home or self-care (01) ==
LOC: M ED 11:36 → M ED INP 14:55 → M MSPAV 16:09
PROVIDERS: ADMIT Internal Medicine; ATTEND Hospitalist
DX: D50.0 Iron deficiency anemia secondary to blood loss (chronic) (principal); I78.0 Hereditary hemorrhagic telangiectasia; R53.83 Other fatigue; R53.1 Weakness; J44.9 Chronic obstructive pulmonary disease, unspecified; Z86.718 Personal history of other venous thrombosis and embolism; Z86.73 Personal history of transient ischemic attack (TIA), and cerebral infarction without residual deficits; Z85.118 Personal history of other malignant neoplasm of bronchus and lung; Z85.841 Personal history of malignant neoplasm of brain; Z90.2 Acquired absence of lung [part of]; F17.210 Nicotine dependence, cigarettes, uncomplicated
CPT/HCPCS: 36415; 36430; 71020; 80048; 80053; 80076; 82550; 82553; 82607; 82728; 82746; 83550; 83605; 83690; 85014; 85018; 85025; 85027; 85610; 85730; 86850; 86900; 86901; 86920; 93000; 93041; 94640; 99285; P9016

== ENCOUNTER 2016-11-20 13:58 | Inpatient (IN) | payer OTHER ==
[~2016-11-20] VITALS: Ht 185.4 cm; Wt 68.2 kg
[~2016-11-20 13:58] MED LIST changes: +INCR1INH INH
[2016-11-20] MEDS ORDERED: ALBU83IN INH (14:11)
[2016-11-20] MEDS ORDERED: BREO1INH3 INH (14:11)
[2016-11-20] MEDS ORDERED: VENTAER INH (14:11)
[2016-11-20] MEDS ORDERED: AUGM875T28 PO (14:11)
[2016-11-20] MEDS ORDERED: ACET1TAB17 PO (14:44)
[2016-11-20 15:09] LABS: BASO # 0.1 10^3/uL (0.0-0.2); BASO % 0.7 % (0.0-1.0); EOS % 0.4 % (0.0-3.0); IMMATURE GRANULOCYTE % 0.5 % (0-0); LYMPH % 12.7 % (24.0-44.0); MEAN CORPUSCULAR HEMOGLOBIN 20.7 pg (27.0-33.0); MEAN CORPUSCULAR HGB CONC 28.6 g/dl (32.0-36.5); MONO # 0.9 10^3/uL (0.0-0.8); MONO % 12.3 % (0.0-5.0); NEUTROPHILS # 5.6 10^3/uL (1.8-7.7); NEUTROPHILS % 73.4 % (36.0-66.0); PLATELET COUNT, AUTOMATED 229 10^3/uL (150-450); WHITE BLOOD COUNT 7.6 10^3/uL (4.0-10.0)
[2016-11-20 15:13] LABS: MEAN CORPUSCULAR VOLUME 72.2 fl (80.0-96.0); RED CELL DISTRIBUTION WIDTH 21.6 % (11.5-14.5)
[2016-11-20 15:14] LABS: ADD MORPHOLOGY? YES
[2016-11-20 15:26] LABS: ANION GAP 11 MEQ/L (8-16); BLOOD UREA NITROGEN 4 MG/DL (7-18); CALCIUM LEVEL 8.3 MG/DL (8.5-10.1); CARBON DIOXIDE LEVEL 24 MEQ/L (21-32); CHLORIDE LEVEL 92 MEQ/L (98-107); CREATININE FOR GFR 0.95 MG/DL (0.70-1.30); GLOMERULAR FILTRATION RATE > 60.0 (>56); GLUCOSE, FASTING 153 MG/DL (70-105); POTASSIUM SERUM 3.2 MEQ/L (3.5-5.1); SODIUM LEVEL 127 MEQ/L (136-145)
[2016-11-20 15:46] LABS: ANISOCYTOSIS 2+; HYPOCHROMASIA 2+; MICROCYTOSIS 2+
[2016-11-20 15:47] LABS: POLYCHROMASIA 2+
[2016-11-20] MEDS ORDERED: KCL 20MEQ in NS 1000ML 1,000 ML IV SCH (16:15)
[2016-11-20] MEDS ORDERED: POTASSIUM CHLORIDE 10 MEQ SR TABLET PO ONE (16:15)
[2016-11-20 16:46] LABS: FREE T4 1.13 NG/DL (0.76-1.46); PERCENT SATURATION 6.7 % (19.7-50.0)
[2016-11-20 16:53] LABS: CORTISOL BASELINE 24.3 UG/DL (4.3-22.4)
[2016-11-20 16:54] LABS: FOLATE 10.6 NG/ML (>5.4)
--- NOTE | 2016-11-20 17:47 | REP ---
Chest x-ray: Two views: History: Evaluate for infiltrate. Comparison chest x-ray September 23, 2016. Comparison chest CT study August 17, 2016. Findings: A 2.7 cm noncalcified nodule is seen in the right lower lobe of the lung behind the dome of the right hemidiaphragm unchanged from comparison study. This corresponds to the arteriovenous malformation seen on recent CT study of the chest from August 17, 2016. The left hemidiaphragm is elevated and tented laterally. No pleural effusion is seen. There is some minimal linear fibrosis in the left lung and there are old healed left-sided rib fractures. The heart is not enlarged. No new infiltrate is seen. Impression: No new infiltrate noted. 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 Postsurgical changes left lung. No active disease. Signed by Dyllan Velasquez MD 11/20/2016 07:24 P
--- NOTE | 2016-11-20 17:59 | HPEPDOC ---
General Date of Admission 11/20/2016 Primary Care Physician: Romelia Sharma Chief Complaint The patient is a 51-year-old male admitted with a reason for visit of Low Blood Count. History of Present Illness This is a pleasant 51-year-old male with a past medical history of lung carcinoma status post lung resection, metastases carcinoma to the brain status post gamma knife surgery, Oojaz-Ahbtu-Fwndm syndrome, COPD, chronic anemia, history of DVTs and CVAs present with an acute complaint of lightheadedness and severe nosebleeds for 2 days. Patient states that this episode of nosebleed began about 2 days ago after he has got one treatment of nebulizer from his primary care physician's office. Patient states that evening this nosebleed subsided after drinking cold water and squeezing cold water into his nares the patient states that helped his bleeding stopped for a few minutes and he went to bed. The day prior to admission patient states he got one more nebulizer treatments and he started bleeding again. He filled "two [employer] extra-large cups". Patient came in this afternoon with his sister because he started exhibiting lightheadedness. Patient had a history of epistasis due to his hereditary condition had multiple blood transfusions in the past. Patient also states the reason he was given a nebulizer treatments with because in the past week he's been having upper respiratory symptoms. He's been complaining of subjective fevers joint pain chills or productive cough that is green in color and is just diffuse body aches. Patient was started on amoxicillin is currently on day 2 and was given a rescue inhaler and Brio. Patient states since starting the amoxicillin his upper your symptoms have subsided and his coughing has improved. In the ER the patient was afebrile, pulse of 107, BP of 96/60 (72), His hemoglobin on was 5.5, his sodium was 127, potassium of 3.2 chloride of 92. 2 units of blood was ordered in the ER. Home Medications Scheduled Amoxicillin/Clavulanate Potas (Augmentin 875-125 mg) 1 Tab Tab, 875 MG PO BID, ( Reported) started 11/19 for 10 days Ferrous Sulfate (Ferrous Sulfate) 325 Mg Tab, 325 MG PO DAILY, (Reported) Fluticasone/Vilanterol (Breo Ellipta 200-25 Mcg/INH) 1 Inh Inh, 1 PUFF INH DAILY , (Reported) Scheduled PRN Acetaminophen (Acetaminophen) 325 Mg Tab, 650 MG PO Q4H PRN for PAIN, (Reported) Albuterol Sulfate (Ventolin Hfa) 108 Mcg/Act Aer, 2 PUFFS INH Q4H PRN for SHORTNESS OF BREATH, (Reported) Albuterol Sulfate (Albuterol Sulfate) 2.5 Mg/3 Ml Nebu, 2.5 MG INH Q4HP PRN for DYSPNEA, (Reported) Tramadol HCl (Tramadol HCl) 50 Mg Tab, 50 MG PO TID PRN for PAIN, (Reported) Allergies Coded Allergies: No Known Drug Allergy (Verified Allergy, 05/09/12) Past Medical History Medical History 1.Osler Mitchlel Rendu 2. History of CVA 2013 with residual left hand intermittent numbness 3. Lung carcinoma status post lung resection 4. Metastases to brain status post gamma knife procedure in [facility] 5. COPD 6. History of DVT status post 2x[place] filters Surgical History 1. Lung carcinoma status post lung resection 2. Metastases to the brain status post gamma knife surgery 3. 2 Willa filters Family History Mother: Alive, well Father: , complications of Osler Mitchell Gregoria/HHT Siblings: Alive, 1 sister with Osler Mitchell Gregoria/HHT Children: Alive, son with nosebleeds. Unexpected deaths due to medical reasons: None. Social History * Smoker: less than 1 pack/day (half a pack a day for 38 years) Alcohol: occationally (4 beers daily) Drugs: marijuana (twice a week) Patient is currently unemployed, has 4 kids, single Review of Symptoms Constitutional: Reports: Chills, Fever (subjective fever), Weakness, Fatigue, Other (lightheadedness) ENT: Reports: Epistaxis (2 extra-large coffee cups worth) Pulmonary: Reports: Cough (reason productive cough) Cardiovascular: Denies: Chest Pain, Palpitations, Orthopnea Gastrointestinal: Denies: Nausea, Vomiting, Abdominal Pain, Diarrhea, Constipation Musculoskeletal: Reports: Other Symptoms (fused body aches) Physical Examination ENT Exam: Positive: Atraumatic, Mucous membr. moist/pink (telangiectasia present on both nares), Nares Patent Chest Exam: Positive: Wheezing (right posterior expiratory wheeze), Negative: Clear to auscultation, Normal air movement Heart Exam: Positive: Rate Normal, Negative: Gallops, Murmurs, Rubs Telemetry: Negative: No significant arrhythmia Abdomen Exam: Positive: Normal bowel sounds, Soft Extremity Exam: Negative: Clubbing, Edema Psych Exam: Positive: Mental status NL Vital Signs Vital Signs Date Time Temp Pulse Resp B/P (MAP) Pulse Ox O2 Delivery O2 Flow Rate FiO2 11/20/16 15:37 11/20/16 13:59 97.8 107 14 96 Room Air Laboratory Data Labs 24H Laboratory Tests 2 11/20/16 14:51: Immature Granulocyte % (Auto) 0.5H, White Blood Count 7.6, Red Blood Count 2.66L , Hemoglobin 5.5*L, Hematocrit 19.2L, Mean Corpuscular Volume 72.2L, Mean Corpuscular Hemoglobin 20.7L, Mean Corpuscular Hemoglobin Concent 28.6L, Red Cell Distribution Width 21.6H, Platelet Count 229, Neutrophils (%) (Auto) 73.4H , Lymphocytes (%) (Auto) 12.7L, Monocytes (%) (Auto) 12.3H, Eosinophils (%) ( Auto) 0.4, Basophils (%) (Auto) 0.7, Neutrophils # (Auto) 5.6, Lymphocytes # ( Auto) 1.0L, Monocytes # (Auto) 0.9H, Eosinophils # (Auto) 0.0, Basophils # (Auto ) 0.1, Immature Granulocyte # (Auto) 0.0, Nucleated Red Blood Cells % (auto) 0.5H, Platelet Estimate NORMAL, Polychromasia 2+, Hypochromasia 2+, Anisocytosis 2+, Microcytosis 2+, Anion Gap 11, Glomerular Filtration Rate > 60.0, Osmolality 258L, Blood Urea Nitrogen 4L, Creatinine 0.95, Sodium Level 127L, Potassium Level 3.2L, Chloride Level 92L, Carbon Dioxide Level 24, Calcium Level 8.3L, Iron Level 18L, Total Iron Binding Capacity 269, Transferrin % Saturation 6.7L, Ferritin 6L, Vitamin B12 Level 490, Folate 10.6, Thyroid Stimulating Hormone (TSH) 1.650, Free Thyroxine 1.13, Total Triiodothyronine 102.2, Cortisol Baseline 24.3H CBC/BMP Laboratory Tests 11/20/16 14:51 Red Blood Count 2.66 L, Mean Corpuscular Volume 72.2 L, Mean Corpuscular Hemoglobin 20.7 L, Mean Corpuscular Hemoglobin Concent 28.6 L, Red Cell Distribution Width 21.6 H, Neutrophils (%) (Auto) 73.4 H, Lymphocytes (%) (Auto ) 12.7 L, Monocytes (%) (Auto) 12.3 H, Eosinophils (%) (Auto) 0.4, Basophils (% ) (Auto) 0.7, Neutrophils # (Auto) 5.6, Lymphocytes # (Auto) 1.0 L, Monocytes # (Auto) 0.9 H, Eosinophils # (Auto) 0.0, Basophils # (Auto) 0.1, Calcium Level 8.3 L Assessment/Plan 1. Anemia. Patient has a hemoglobin of 5.5 on admission. Due to epistasis from underlying Osler Mitchell Rendu syndrome. Patient needs to be transfused 4 units of blood and do a repeat CBC. Iron panel, vitamin B12, reticulocyte count, folate levels and thyroid panel will be checked. At this time will discontinue to transfuse the patient and have a CBC at every 6 hours 2. Hyponatremia likely due to hypovolemia due to active blood loss. Blood pressure is 96/60. Will give the patient potassium chloride 20 mEq in 1000 ml normal saline at 60mls/hr. We'll be getting urine sodium, urine creatinine, urine osmolarity, and serum osmolarity to rule out SIADH. 3. Hypokalemia. Patient will be supplemented with potassium chloride 20 mEq in 1000 ml normal saline running at 60 mL per hour at this time We'll continue with daily CMP and monitor 4. Hypochloremia 5. Upper respiratory infection symptoms. Patient has expiratory wheezing on the right lower lobe. We'll get a chest x-ray continue the patient on home amoxicillin currently day 2. Will also get a sputum culture. 6. Diet regular 7. DVT prophylaxis SCDs/TEDs Plan / VTE VTE Prophylaxis Ordered?: Yes (SCDs/TEDs) GME ATTESTATION GME ATTESTATION My preceptor for this patient encounter was physically present in the building during the encounter and was fully available. As needed, all aspects of the patient interview, examination, medical decision making process, and medical care plan development were reviewed and approved by the preceptor. Preceptor is aware and concurs with the plan as stated in the body of this note and will attest to such by his/her cosignature. ATTENDING NOTE I, Shaheen Quinn, have both independently examined this patient as well as reviewed the documentation. I have discussed in detail with the resident the findings and plan of treatment as documented in the residents documentation. I will continue to follow the patient and offer further guidance to the patients care as necessary during this hospital stay. ELIE TOVRA DO Nov 20, 2016 17:59 SHAHEEN QUINN MD Dec 06, 2016 18:11
[2016-11-20] MEDS ORDERED: ACETAMINOPHEN TAB 650MG DOSE (2X325MG) PO PRN (18:00)
[2016-11-20] MEDS ORDERED: ALBUTEROL 90 MCG/ACT 8GM HFA INHALER INH PRN (18:00)
[2016-11-20] MEDS ORDERED: traMADol 50 MG TAB PO PRN (18:00)
[2016-11-20 18:36] VITALS: BP 116/65
[2016-11-20] MEDS: AUGMENTIN 875 MG TAB PO SCH (20:13)
[2016-11-20 23:00] LABS: OSMOLALITY URINE 199 MOSM/KG (500-800)
[2016-11-20 23:32] LABS: RETIC HEMOGLOBIN EQUIVALENT 19.7 pg (24-36); RETICULOCYTE % 2.9 % (0.5-1.5)
[2016-11-21 00:16] VITALS: BP 99/58
[2016-11-21 00:52] LABS: MEAN CORPUSCULAR HEMOGLOBIN 23.6 pg (27.0-33.0); MEAN CORPUSCULAR HGB CONC 30.9 g/dl (32.0-36.5); MEAN CORPUSCULAR VOLUME 76.4 fl (80.0-96.0); WHITE BLOOD COUNT 7.8 10^3/uL (4.0-10.0)
[2016-11-21 00:56] LABS: ANION GAP 6 MEQ/L (8-16); BLOOD UREA NITROGEN 8 MG/DL (7-18); CALCIUM LEVEL 7.7 MG/DL (8.5-10.1); CARBON DIOXIDE LEVEL 23 MEQ/L (21-32); CHLORIDE LEVEL 100 MEQ/L (98-107); CREATININE FOR GFR 0.66 MG/DL (0.70-1.30); GLOMERULAR FILTRATION RATE > 60.0 (>56); GLUCOSE, FASTING 117 MG/DL (70-105); MAGNESIUM LEVEL 1.8 MG/DL (1.8-2.4); POTASSIUM SERUM 3.7 MEQ/L (3.5-5.1); SODIUM LEVEL 129 MEQ/L (136-145)
[2016-11-21 05:08] VITALS: BP 115/70
[2016-11-21 05:12] LABS: MEAN CORPUSCULAR HEMOGLOBIN 23.6 pg (27.0-33.0); MEAN CORPUSCULAR VOLUME 76.1 fl (80.0-96.0); WHITE BLOOD COUNT 7.8 10^3/uL (4.0-10.0)
[2016-11-21 05:13] LABS: RED CELL DISTRIBUTION WIDTH 20.8 % (11.5-14.5)
[2016-11-21 05:26] LABS: ANION GAP 8 MEQ/L (8-16); BLOOD UREA NITROGEN 6 MG/DL (7-18); CALCIUM LEVEL 7.9 MG/DL (8.5-10.1); CARBON DIOXIDE LEVEL 21 MEQ/L (21-32); CHLORIDE LEVEL 101 MEQ/L (98-107); CREATININE FOR GFR 0.59 MG/DL (0.70-1.30); GLOMERULAR FILTRATION RATE > 60.0 (>56); GLUCOSE, FASTING 96 MG/DL (70-105); MAGNESIUM LEVEL 1.9 MG/DL (1.8-2.4); POTASSIUM SERUM 3.8 MEQ/L (3.5-5.1); SODIUM LEVEL 130 MEQ/L (136-145)
[2016-11-21 08:00] VITALS: BP 102/55
[2016-11-21] MEDS ORDERED: FERROUS SULFATE 325MG TAB PO SCH (09:00)
[2016-11-21] MEDS ORDERED: FLUTICASONE HFA 220 MCG 12 GM INHALER (FLOVENT) INH SCH (09:00)
[2016-11-21] MEDS: AUGMENTIN 875 MG TAB PO SCH (09:01)
[2016-11-21 10:28] LABS: ANION GAP 10 MEQ/L (8-16); BLOOD UREA NITROGEN 4 MG/DL (7-18); CALCIUM LEVEL 7.7 MG/DL (8.5-10.1); CARBON DIOXIDE LEVEL 21 MEQ/L (21-32); CHLORIDE LEVEL 102 MEQ/L (98-107); CREATININE FOR GFR 0.63 MG/DL (0.70-1.30); GLOMERULAR FILTRATION RATE > 60.0 (>56); GLUCOSE, FASTING 100 MG/DL (70-105); POTASSIUM SERUM 3.7 MEQ/L (3.5-5.1); SODIUM LEVEL 133 MEQ/L (136-145)
--- NOTE | 2016-11-21 14:51 | DS.PDOC ---
Discharge Summary General Date of Admission Nov 20, 2016 at 17:18 Date of Discharge 11/21/2016 Discharge Summary PRIMARY CARE PHYSICIAN: Romelia Sharma ATTENDING AT TIME OF DISCHARGE: Dr. Mary Hernandez DISCHARGE DIAGNOS(E)S: 1. Blood loss anemia secondary to epistaxis in the setting of Osler-Cierra- Rendu syndrome (HHT) 2. Hypovolemic Hyponatremia 3. Hypokalemia 4. Hypochloremia 5. Upper respiratory tract infection 6. History of CVA in 2013 with a residual left hand intermittent numbness 7. Lung carcinoma status post lung resection 8. Metastases to brain status post gamma knife procedure 9. COPD 10. History of DVT status post Willa filter HPI & HOSPITAL COURSE: The patient had been having some respiratory symptoms for which he presented to his PCP. Apparently his nasal mucosa was dried out from the administration of nebulizers and puffers, and this combined with multiple episodes of coughing caused him to have a nosebleed. The patient reports that he has had multiple nosebleeds throughout his life, and he is very familiar with the fact that he has Ovpcd-Cvxac-Mqzpq syndrome. He clearly points out that he would not come to the emergency department for his respiratory symptoms, he only came because of his excessive bleeding, and he knew that he may need a blood transfusion given the massive amount of blood loss he had sustained. He was transfused with 4 units of blood, and was given a liter of normal saline with potassium. Serial H&H's did increase, his hemoglobin upon admission was 5.5, it is now 8.6. His hypokalemia and hypochloremia are clearly secondary to total volume loss from epistaxis, potassium is now within the normal range, and sodium is 133 at the time of discharge. He is no longer bleeding. Otherwise, we will continue his previously prescribed dose of amoxicillin, and he is recommended to continue taking this for the full course of recommended time. He was seen and evaluated by physical therapy who stated he is safe to go back to his previous level of care. His bleeding has stopped, he does appear to be stable for discharge at this time. He expresses good understanding of when to return, especially in the setting of bleeding, as he has managed recurrent epistaxis his entire life secondary to HHT. PHYSICAL EXAMINATION ON DISCHARGE: GENERAL: Awaiting, alert, oriented 3. His nose is full of caked blood. CARDIOVASCULAR EXAMINATION: Regular rate and rhythm, with no rubs, gallops, or murmur. RESPIRATORY EXAMINATION: Clear to auscultation bilaterally with only minimal wheezes. It is interesting to note that he does have a bruit in the right lower lung field from what I suspected be an AVM in the chest. ABDOMINAL EXAMINATION: Soft, nontender, nondistended. Bowel sounds present. EXTREMITIES: No clubbing or edema noted. 2+ pulses in the radial bilaterally. DISPOSITION: Home DISCHARGE INSTRUCTIONS: Follow-up with primary care provider within 7-10 days. Diet as tolerated. Activity as tolerated. If symptoms return, or if you experience worsening of your symptoms, please call your doctor or return to the emergency department. My preceptor for this patient encounter was physically present in the building during the encounter and was fully available. As needed, all aspects of the patient interview, examination, medical decision making process, and medical care plan development were reviewed and approved by the preceptor. Preceptor is aware and concurs with the plan as stated in the body of this note and will attest to such by his/her cosignature. Vital Signs/I&Os Vital Signs Date Time Temp Pulse Resp B/P (MAP) Pulse Ox O2 Delivery O2 Flow Rate FiO2 11/21/16 08:00 97.8 62 18 102/55 (71) 95 Room Air I&O- Last 24 Hours up to 6 AM 11/22/16 06:00 Intake Total 240 ml Balance 240 ml Laboratory Data Labs 24H Laboratory Tests 2 11/20/16 14:51: Immature Granulocyte % (Auto) 0.5H, White Blood Count 7.6, Red Blood Count 2.66L , Hemoglobin 5.5*L, Hematocrit 19.2L, Mean Corpuscular Volume 72.2L, Mean Corpuscular Hemoglobin 20.7L, Mean Corpuscular Hemoglobin Concent 28.6L, Red Cell Distribution Width 21.6H, Platelet Count 229, Neutrophils (%) (Auto) 73.4H , Lymphocytes (%) (Auto) 12.7L, Monocytes (%) (Auto) 12.3H, Eosinophils (%) ( Auto) 0.4, Basophils (%) (Auto) 0.7, Neutrophils # (Auto) 5.6, Lymphocytes # ( Auto) 1.0L, Monocytes # (Auto) 0.9H, Eosinophils # (Auto) 0.0, Basophils # (Auto ) 0.1, Immature Granulocyte # (Auto) 0.0, Reticulocyte # (auto) 78.000H, Nucleated Red Blood Cells % (auto) 0.5H, Platelet Estimate NORMAL, Polychromasia 2+, Hypochromasia 2+, Anisocytosis 2+, Microcytosis 2+, Percent Reticulocyte Count 2.9H, Reticulocyte Hemoglobin Equivalent 19.7L, Anion Gap 11 , Glomerular Filtration Rate > 60.0, Osmolality 258L, Blood Urea Nitrogen 4L, Creatinine 0.95, Sodium Level 127L, Potassium Level 3.2L, Chloride Level 92L, Carbon Dioxide Level 24, Calcium Level 8.3L, Iron Level 18L, Total Iron Binding Capacity 269, Transferrin % Saturation 6.7L, Ferritin 6L, Vitamin B12 Level 490 , Folate 10.6, Thyroid Stimulating Hormone (TSH) 1.650, Free Thyroxine 1.13, Total Triiodothyronine 102.2, Cortisol Baseline 24.3H 11/20/16 22:46: Urine Random Osmolality 199L, Urine Random Creatinine 81.7, Urine Random Sodium < 10 11/21/16 00:08: Anion Gap 6L, Glomerular Filtration Rate > 60.0, Blood Urea Nitrogen 8#, Creatinine 0.66L, Sodium Level 129L, Potassium Level 3.7, Chloride Level 100, Carbon Dioxide Level 23, Calcium Level 7.7L, Magnesium Level 1.8 11/21/16 00:09: Nucleated Red Blood Cells % (auto) 1.0H 11/21/16 04:59: Nucleated Red Blood Cells % (auto) 1.1H, Anion Gap 8, Glomerular Filtration Rate > 60.0, Blood Urea Nitrogen 6L, Creatinine 0.59L, Sodium Level 130L, Potassium Level 3.8, Chloride Level 101, Carbon Dioxide Level 21, Calcium Level 7.9L, Magnesium Level 1.9 11/21/16 09:56: Anion Gap 10, Glomerular Filtration Rate > 60.0, Blood Urea Nitrogen 4L, Creatinine 0.63L, Sodium Level 133L, Potassium Level 3.7, Chloride Level 102, Carbon Dioxide Level 21, Calcium Level 7.7L CBC/BMP Laboratory Tests 11/20/16 14:51 Red Blood Count 2.66 L, Mean Corpuscular Volume 72.2 L, Mean Corpuscular Hemoglobin 20.7 L, Mean Corpuscular Hemoglobin Concent 28.6 L, Red Cell Distribution Width 21.6 H, Neutrophils (%) (Auto) 73.4 H, Lymphocytes (%) (Auto ) 12.7 L, Monocytes (%) (Auto) 12.3 H, Eosinophils (%) (Auto) 0.4, Basophils (% ) (Auto) 0.7, Neutrophils # (Auto) 5.6, Lymphocytes # (Auto) 1.0 L, Monocytes # (Auto) 0.9 H, Eosinophils # (Auto) 0.0, Basophils # (Auto) 0.1, Calcium Level 8.3 L 11/21/16 00:08 Calcium Level 7.7 L 11/21/16 00:09 Red Blood Count 3.05 L, Mean Corpuscular Volume 76.4 L, Mean Corpuscular Hemoglobin 23.6 L, Mean Corpuscular Hemoglobin Concent 30.9 L, Red Cell Distribution Width 22.0 H 11/21/16 04:59 Red Blood Count 3.43 L, Mean Corpuscular Volume 76.1 L, Mean Corpuscular Hemoglobin 23.6 L, Mean Corpuscular Hemoglobin Concent 31.0 L, Red Cell Distribution Width 20.8 H, Calcium Level 7.9 L 11/21/16 09:56 Calcium Level 7.7 L Discharge Medications Scheduled Amoxicillin/Clavulanate Potas (Augmentin 875-125 mg) 1 Tab Tab, 875 MG PO BID, ( Reported) started 11/19 for 10 days Ferrous Sulfate (Ferrous Sulfate) 325 Mg Tab, 325 MG PO DAILY, (Reported) Fluticasone/Vilanterol (Breo Ellipta 200-25 Mcg/INH) 1 Inh Inh, 1 PUFF INH DAILY , (Reported) Scheduled PRN Acetaminophen (Acetaminophen) 325 Mg Tab, 650 MG PO Q4H PRN for PAIN, (Reported) Albuterol Sulfate (Ventolin Hfa) 108 Mcg/Act Aer, 2 PUFFS INH Q4H PRN for SHORTNESS OF BREATH, (Reported) Albuterol Sulfate (Albuterol Sulfate) 2.5 Mg/3 Ml Nebu, 2.5 MG INH Q4HP PRN for DYSPNEA, (Reported) Tramadol HCl (Tramadol HCl) 50 Mg Tab, 50 MG PO TID PRN for PAIN, (Reported) Allergies Coded Allergies: No Known Drug Allergy (Verified Allergy, 05/09/12) Attending Note Attending Note I have seen and examined the above patient and agree with the above documentation. Time spent on discharge: >30 min KIRAN BATES DO Nov 21, 2016 14:51 MARY HERNANDEZ Nov 26, 2016 14:02
== END 2016-11-21 13:08 | disposition home or self-care (01) | DRG 663 ==
LOC: M ED 13:58 → M ED INP 17:18 → M PCU 18:05
PROVIDERS: ADMIT Internal Medicine; ATTEND Hospitalist
PROC: 30253N1 (ICD-10-PCS; principal; 2016-11-20)
DX: D50.0 Iron deficiency anemia secondary to blood loss (chronic) (principal); J44.9 Chronic obstructive pulmonary disease, unspecified; I69.398 Other sequelae of cerebral infarction; F17.210 Nicotine dependence, cigarettes, uncomplicated; R20.0 Anesthesia of skin; E87.1 Hypo-osmolality and hyponatremia; E87.6 Hypokalemia; E87.8 Other disorders of electrolyte and fluid balance, not elsewhere classified; I78.0 Hereditary hemorrhagic telangiectasia; J06.9 Acute upper respiratory infection, unspecified; Z86.718 Personal history of other venous thrombosis and embolism; Z85.118 Personal history of other malignant neoplasm of bronchus and lung; Z85.841 Personal history of malignant neoplasm of brain; Z79.899 Other long term (current) drug therapy

== ENCOUNTER 2017-01-25 10:03 | Observation (INO) | payer OTHER ==
[~2017-01-25] VITALS: Ht 185.4 cm; Wt 68.1 kg
[~2017-01-25 10:03] MED LIST changes: +ACET1TAB17 PO; +ALBU83IN INH; +AUGM875T28 PO; +BREO1INH3 INH; +VENTAER INH
[2017-01-25 10:43] LABS: BASO # 0.1 10^3/uL (0.0-0.2); BASO % 1.5 % (0.0-1.0); EOS # 0.2 10^3/uL (0.0-0.50); EOS % 3.7 % (0.0-3.0); IMMATURE GRANULOCYTE % 0.4 % (0-0); LYMPH # 1.3 10^3/uL (1.5-4.5); LYMPH % 23.9 % (24.0-44.0); MEAN CORPUSCULAR HEMOGLOBIN 21.4 pg (27.0-33.0); MEAN CORPUSCULAR HGB CONC 28.3 g/dl (32.0-36.5); MEAN CORPUSCULAR VOLUME 75.5 fl (80.0-96.0); MONO # 0.8 10^3/uL (0.0-0.8); MONO % 14.3 % (0.0-5.0); NEUTROPHILS # 3.1 10^3/uL (1.8-7.7); NEUTROPHILS % 56.2 % (36.0-66.0); PLATELET COUNT, AUTOMATED 291 10^3/uL (150-450); RED CELL DISTRIBUTION WIDTH 19.8 % (11.5-14.5); WHITE BLOOD COUNT 5.5 10^3/uL (4.0-10.0)
[2017-01-25 10:53] LABS: INR 0.92
[2017-01-25 11:33] LABS: ALBUMIN 2.8 GM/DL (3.2-5.2); ALBUMIN/GLOBULIN RATIO 0.64 (1.00-1.93); ALKALINE PHOSPHATASE 48 U/L (45-117); ALT/SGPT 16 U/L (12-78); ANION GAP 7 MEQ/L (8-16); AST/SGOT 23 U/L (7-37); BILIRUBIN,DIRECT 0.1 MG/DL (0.0-0.2); BILIRUBIN,TOTAL 0.4 MG/DL (0.2-1.0); BLOOD UREA NITROGEN 5 MG/DL (7-18); CALCIUM LEVEL 8.2 MG/DL (8.5-10.1); CARBON DIOXIDE LEVEL 24 MEQ/L (21-32); CHLORIDE LEVEL 104 MEQ/L (98-107); CREATININE FOR GFR 0.63 MG/DL (0.70-1.30); GLOMERULAR FILTRATION RATE > 60.0 (>56); GLUCOSE, FASTING 88 MG/DL (70-105); POTASSIUM SERUM 4.1 MEQ/L (3.5-5.1); SODIUM LEVEL 135 MEQ/L (136-145); TOTAL PROTEIN 7.2 GM/DL (6.4-8.2)
[2017-01-25] MEDS ORDERED: ONDANSETRON 4MG/2ML VIAL (J2405) IV PRN (12:30)
[2017-01-25] MEDS ORDERED: ACETAMINOPHEN TAB 650MG DOSE (2X325MG) PO PRN (12:30)
--- NOTE | 2017-01-25 13:46 | HPE ---
DATE OF ADMISSION: 01/25/2017 PRIMARY CARE PROVIDER: Romelia Sharma NP HOSPITALIST ATTENDING: Dewayne Reynolds DO CHIEF COMPLAINT: Nosebleed. 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 While he was sitting watching television 3 days ago, a gush of blood came out of his nose. He tried to drink water, which usually stops it, but with no improvement. The patient denies any nonsteroidal antiinflammatory drug (NSAID) use. Had soaked about 3-4 bath towels at home and had complaints of lightheadedness prompting him to present to the emergency room (ER) today for a blood transfusion. The patient has had a similar episode in November when he was admitted to the hospital, received 2 units of blood transfusion, had had multiple ears, nose, and throat (ENT) interventions, including cauterization, with no significant relief. In the ER, the patient's epistaxis resolved. He denies any chest pain, pressure, or tightness. Has some shortness of breath and was mouth-breathing at home and has been stable since. He complains of some dizziness and some trouble with ambulation. He currently is awaiting for 2 units of red blood cell transfusion currently. Vital signs show orthostasis. PAST MEDICAL HISTORY: Lung cancer (CA), status post resection. Metastatic carcinoma to the brain, status post gamma knife surgery. Also, Fgfho-Ehwer-Suzqc syndrome. COPD. Chronic anemia. History of DVTs and CVAs, status post inferior vena cava (IVC) filter placement times two. PAST SURGICAL HISTORY: Lung CA with resection. Metastases to brain, status post gamma knife surgery. Two Willa filters. ALLERGIES: No known drug allergies. HOME MEDICATIONS: - ferrous sulfate 325 daily - tramadol 50 three times a day as needed - albuterol nebulizer every 4 as needed - Ventolin two puffs every 4 as needed - acetaminophen 650 every 4 as needed - Breo Ellipta one puff inhaled daily FAMILY HISTORY: Father with complications of Anisk-Aeczh-Vtcca, hereditary hemorrhagic telangiectasia (HHT). Mother alive and well. One sister again with Osler-Mitchell, Rendu, HHT. A son with epistaxis. SOCIAL HISTORY: Smokes less than a pack a day, about a half a pack for 38 years. Occasional beer, about four beers daily. Marijuana Currently unemployed with four children and single. REVIEW OF SYSTEMS: Per history of present illness (HPI); 12-point system otherwise negative. PHYSICAL EXAMINATION: Temperature 98.4, pulse 72, respiratory rate 16, blood pressure 118/68, 97% on room air. Generally, the patient is awake, alert, oriented times three, answering questions appropriately. No respiratory distress or use of respiratory accessory muscles. The patient has dried blood around the nares and philtrum. He is speaking in full sentences.no mouth-breathing. There is no stridor. Pupils are round and reactive. Anicteric sclerae. No jaundice. Lungs are clear to auscultation. No wheezing, rales, or rhonchi. HEART: S1, S2, sinus rhythm. ABDOMEN: Is soft, nontender, nondistended. EXTREMITIES: No clubbing or pitting edema. White count 5.5, hemoglobin 7, hematocrit 24, platelet count 291. Sodium 135, potassium 4, chloride 104, bicarbonate 24, BUN 5, creatinine 0.63, glucose of 88. Previous hemoglobin in November was 8.6 and hematocrit of 27. No chest x-ray. ASSESSMENT AND PLAN: This is a 51-year-old male with history of Osler-Mitchell, Rendu syndrome, lung cancer status post resection, metastatic carcinoma to the brain status post gamma knife surgery, history of chronic deep venous thromboses (DVTs) and pulmonary emboli (PE) with two Upton filters, chronic blood loss anemia secondary to multiple nosebleeds in the past requiring hospitalization as well as blood transfusion, chronic obstructive pulmonary disease, presents with 3-day history of epistaxis on and off and progressive with decrease in hemoglobin to 7, complains of dizziness. CURRENT ISSUES: The patient will be admitted for observation for the following acute issues: 1. 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 The patient will be treated symptomatically. Epistaxis has subsided. Does not require ENT referral or cauterization. Hemoglobin and hematocrit will be checked after 2 units of blood cell transfusion. Avoid NSAIDs, traumatic injuries. 2. Acute blood loss anemia secondary to epistaxis from Xbdyw-Cqumq-Gidvg syndrome. The patient will be transfused 2 units of blood. Check hemoglobin and hematocrit every 6 hours. Due to symptomatic anemia, the patient will be watched for observation overnight. He appears to be orthostatic. Therefore, will provide with supportive care. After red blood cell (RBC) transfusion, will recheck for orthostasis and give intravenous (IV) fluids if needed. 3. History of deep venous thromboses and cerebrovascular accidents in the past. No anticoagulation due to recurrent epistaxis. 4. Blood loss anemia requiring blood transfusion. Currently with IVC filter for prior history of DVTs. 5. History of lung cancer, status post resection and gamma knife surgery due to metastases to the brain. Stable. Followed at [facility]. Previously, with Dr. Hunt. 6. History of chronic obstructive pulmonary disease. No acute decompensation. Lungs were clear. Continue on as-needed Breo Ellipta and nebulizers. 7. Deep venous thrombosis prophylaxis with compression stockings in light of acute blood loss anemia secondary to active epistaxis. DISPOSITION: Once the patient's hemoglobin and hematocrit is stable and the patient is not symptomatic, he may be discharged home in the morning. [facility]
[2017-01-25 14:03] VITALS: BP 129/72
[2017-01-25 22:00] VITALS: BP 110/69
[2017-01-26 02:00] VITALS: BP 110/69
[2017-01-26 06:00] VITALS: BP 123/44
[2017-01-26 06:54] LABS: ANION GAP 5 MEQ/L (8-16); BLOOD UREA NITROGEN 7 MG/DL (7-18); CALCIUM LEVEL 8.1 MG/DL (8.5-10.1); CARBON DIOXIDE LEVEL 25 MEQ/L (21-32); CHLORIDE LEVEL 108 MEQ/L (98-107); CREATININE FOR GFR 0.58 MG/DL (0.70-1.30); GLOMERULAR FILTRATION RATE > 60.0 (>56); GLUCOSE, FASTING 74 MG/DL (70-105); POTASSIUM SERUM 4.2 MEQ/L (3.5-5.1); SODIUM LEVEL 138 MEQ/L (136-145)
--- NOTE | 2017-01-26 08:38 | ECGEPIP ---
Stationary ECG Study [facility] - ED Test Date: 2017-01-25 Pat Name: MIRIAN FELICIANO Department: Room: [place] [address] Gender: M [employer]: alma : 1965 Requested By: Madeline Beavers Order Number: [id number] Reading MD: Madeline Beavers Measurements Intervals [place] Rate: 73 P: 56 NM: 178 QRS: 15 QRSD: 90 T: 18 QT: 365 QTc: 402 Interpretive Statements SINUS RHYTHM LOW VOLTAGE LIMB PRWP Electronically Signed On 01-26-2017 8:38:33 EST by Madeline Beavers
--- NOTE | 2017-01-26 14:18 | DS.PDOC ---
Discharge Summary General Date of Admission Jan 25, 2017 at 12:22 Date of Discharge Jan 26, 2017 Attending Physician: CLAU JONES DO Specialist/Consultants Involve PCP: Romelia Sharma NP Discharge Summary CONSULTS: None PROCEDURES: None COMPLICATIONS: None ADMISSION / DISCHARGE DIAGNOSIS: 1. Epistaxis, likely secondary to AV malformations and Hqino-Udmzt-Ztkkd syndrome. 2. Acute blood loss anemia secondary to epistaxis. 3. History of DVT, not currently on anticoagulation therapy due to increased risk of recurrent epistaxis, [place] filter in place 4. Prior history of cerebrovascular accident. 5. History of lung cancer status post resection, gamma knife surgery due to brain metastasis. 6. History of COPD, stable BRIEF HOSPITAL COURSE: 51-year-old gentleman with known history of Icate-Rqrqj-Lxigo syndrome and recurrent epistaxis presented to the emergency department with profuse nosebleeds. The bleeding was noted to spontaneously dissipate with pressure, however, he did demonstrate acute blood loss anemia requiring 2 units of packed red blood cells. He was observed overnight. No further issues of epistaxis. His H&H remained normal and he was discharged in the morning. For further information regarding intake physical. Labs diagnostics please refer the H&P. PHYSICAL EXAMINATION ON DISCHARGE: VITAL SIGNS: Please see below. GENERAL: NAD, A&OX3 HEENT: PERRLA, throat clear, neck supple, no JVD CARDIOVASCULAR EXAMINATION: RRR RESPIRATORY EXAMINATION: CTA bilaterally ABDOMINAL EXAMINATION: soft, NT/ND, normoactive bowel sounds EXTREMITIES: no edema no calf tenderness SKIN: intact NEUROLOGICAL EXAMINATION: CN'S II-XII grossly intact PSYCHIATRIC EXAMINATION: stable DISCHARGE MEDICATIONS: See below DISCHARGE CONDITION: Good DISPOSITION: Discharge to home DISCHARGE INSTRUCTIONS: Activity: As tolerated Diet: Regular Follow up: One week with primary care provider Seek medical attention should symptoms worsen or progress. Voiced understanding by patient and/or caregiver. TRANSITION OF CARE ISSUES: Plans should be made by primary care provider for the future. He does have a history of recurrent epistaxis related to his underlying AV malformations and requires periodic blood transfusions. This could be achieved as an outpatient by a simple prescription written for blood transfusion and for X-number of units, which she can bring to the [facility]fusion [facility] , Wednesday through Wednesday for blood for transfusion as needed. TIME SPENT ON DISCHARGE: greater than 35 minutes Please CC: Romelia Sharma, REAL ESTATE TRANSACTION COORDINATOR Vital Signs/I&Os Vital Signs Date Time Temp Pulse Resp B/P (MAP) Pulse Ox O2 Delivery O2 Flow Rate FiO2 01/26/17 10:00 Room Air 01/26/17 06:00 98.0 67 18 123/44 (70) 97 Laboratory Data Labs 24H Laboratory Tests 2 01/26/17 06:10: Anion Gap 5L, Glomerular Filtration Rate > 60.0, Blood Urea Nitrogen 7, Creatinine 0.58L, Sodium Level 138, Potassium Level 4.2, Chloride Level 108H, Carbon Dioxide Level 25, Calcium Level 8.1L CBC/BMP Laboratory Tests 01/25/17 17:39 01/26/17 00:00 01/26/17 06:10 Calcium Level 8.1 L Discharge Medications Scheduled Ferrous Sulfate (Ferrous Sulfate) 325 Mg Tab, 325 MG PO DAILY, (Reported) Fluticasone/Vilanterol (Breo Ellipta 200-25 Mcg/INH) 1 Inh Inh, 1 PUFF INH DAILY , (Reported) Scheduled PRN Acetaminophen (Acetaminophen) 325 Mg Tab, 650 MG PO Q4H PRN for PAIN, (Reported) Albuterol Sulfate (Ventolin Hfa) 108 Mcg/Act Aer, 2 PUFFS INH Q4H PRN for SHORTNESS OF BREATH, (Reported) Albuterol Sulfate (Albuterol Sulfate) 2.5 Mg/3 Ml Nebu, 2.5 MG INH Q4H PRN for SHORTNESS OF BREATH, (Reported) Tramadol HCl (Tramadol HCl) 50 Mg Tab, 50 MG PO TID PRN for PAIN, (Reported) Allergies Coded Allergies: No Known Drug Allergy (Verified Allergy, 05/09/12) CLAU JONES DO Jan 26, 2017 14:18
== END 2017-01-26 10:38 | disposition home or self-care (01) ==
LOC: M ED 10:03 → M ED INP 12:22 → M MSPAV 13:45
PROVIDERS: ADMIT General Practice; ATTEND Hospitalist
DX: R04.0 Epistaxis (principal); I78.0 Hereditary hemorrhagic telangiectasia; Q27.39 Arteriovenous malformation, other site; D62 Acute posthemorrhagic anemia; Z86.718 Personal history of other venous thrombosis and embolism; Z86.73 Personal history of transient ischemic attack (TIA), and cerebral infarction without residual deficits; J44.9 Chronic obstructive pulmonary disease, unspecified; Z85.118 Personal history of other malignant neoplasm of bronchus and lung; Z85.841 Personal history of malignant neoplasm of brain; Z79.899 Other long term (current) drug therapy; Z79.51 Long term (current) use of inhaled steroids; F17.210 Nicotine dependence, cigarettes, uncomplicated
CPT/HCPCS: 36415; 36430; 80048; 80076; 85014; 85018; 85025; 85610; 86850; 86900; 86901; 86920; 93005; 93041; 94760; 99285; P9016